=== PATIENT | female | born 1985 | race Caucasian/White ===

== ENCOUNTER 2020-05-15 11:58 | Emergency (ER) | payer OTHER ==
[2020-05-15] MEDS ORDERED: Ibuprofen 600 MG Tab PO ONE (13:13)
--- NOTE | 2020-05-15 13:58 | EDM.PDOC ---
ED HPI GENERAL MEDICAL PROBLEM - General Chief Complaint: General Stated Complaint: PANIC ATTACK Time Seen by Provider: 05/15/20 12:12 Source of Information: Reports: Patient History Limitations: Reports: No Limitations - History of Present Illness INITIAL COMMENTS - FREE TEXT/NARRATIVE: HISTORY AND PHYSICAL: History of present illness: Patient is a 34-year-old female who presents emergency room today with concern of a panic attack that occurred just prior to arrival to the ED. Patient states that her asked for divorce this morning. Patient states that she lives in [facility] and has 3 children. Patient states she is 3 months and states that she has some depression/ anxiety that she is supposed to be taking Zoloft for as prescribed by her [employer]LY[employer] provider out of [place]. Patient states that she got into an argument with her last night and he requested for divorce this morning. Patient states that he said some hurtful comments which she believes has been triggering her anxiety today. Patient states that she is in [employer] today as her middle child has a hockey game against [employer] today. Patient states that the hockey game is currently going on and while she was sitting in the bleachers, she began feeling super anxious and panicking. Patient states that in the triage process, she has felt improvement of her symptoms and states that she feels sad. Patient denies any homicidal ideation, suicidal ideation, or hallucinations. She states that she does not want to harm her baby or anybody. Patient states that she does have a safe place to go. Patient denies fever, chills, chest pain, shortness of breath, or cough. Denies headache, neck stiff ness, change in vision, syncope, or near syncope. Denies nausea, vomiting, abdominal pain, diarrhea, constipation, or dysuria. Has not noted any blood in urine or stool. Patient has been eating and drinking appropriately. Review of systems: As per history of present illness and below otherwise all systems reviewed and negative. Past medical history: As per history of present illness and as reviewed below otherwise noncontributory. Surgical history: As per history of present illness and as reviewed below otherwise noncontributory. Social history: See social history for further information Family history: As per history of present illness and as reviewed below otherwise noncontributory. Physical exam: General: Patient is alert, oriented, and in no acute distress. Patient sitting comfortably on exam table. Patient is tearful on exam and vitally stable reviewed by me. HEENT: Atraumatic, normocephalic, pupils equal and reactive bilaterally, negative for conjunctival pallor or scleral icterus, mucous membranes moist, TMs normal bilaterally, throat clear, neck supple, nontender, trachea midline. No drooling or trismus noted. No meningeal signs. No hot potato voice noted. Lungs: Clear to auscultation, breath sounds equal bilaterally, chest nontender. Heart: S1S2, regular rate and rhythm without overt murmur Abdomen: Soft, nondistended, nontender. Negative for masses or hepatosplenomegaly. Negative for costovertebral tenderness. Pelvis: Stable nontender. Genitourinary: Deferred. Rectal: Deferred. Skin: Intact, warm, dry. No lesions or rashes noted. Extremities: Atraumatic, negative for cords or calf pain. Neurovascular unremarkable. Neuro: Awake, alert, oriented. Cranial nerves II through XII unremarkable. Cerebellum unremarkable. Motor and sensory unremarkable throughout. Exam nonfocal. Notes: Patient was provided with information for the [facility] crisis [facility]. Patient also encouraged to call her ORGANISATION AND METHODS ANALYST provider that she states she has a close relationship with. Patient was asked numerous times by myself and nursing staff about suicidal, homicidal, or hallucinations and patient denies this. Signs and symptoms that were prompt return to the emergency room thoroughly discussed with patient. Discussed importance for follow-up with a primary care provider, or her [employer]ATION [employer] METHODS ANALYST provider. Voices understanding and is agreeable to plan of care. Denies any further questions or concerns at this time. Diagnostics: None Therapeutics: None Prescription: None Impression: Anxiety Depression Plan: 1. You can start your prescription for Zoloft as prescribed to you prior by her [employer] ANALYST provider. 2. I encourage you to call your [employer]NA[employer] provider for further discussion. 3. The [facility] information is above for you to call if you feel the need. 4. Follow-up with your primary care provider/[employer]ISATION [employer] METHODS ANALYST provider as discussed. Return to the ED as needed and as discussed. Definitive disposition and diagnosis as appropriate pending reevaluation and review of above. headache Pain Score (Numeric/FACES): 6 - Related Data Allergies Allergy/AdvReac Type Severity Reaction Status Date / Time Penicillins Allergy Mild Hives Verified 05/15/20 13:01 amoxicillin [Amoxicillin] Allergy Cannot Verified 05/15/20 13:01 Remember penicillin V Allergy Cannot Verified 05/15/20 13:01 Remember RYE AdvReac Vomiting Uncoded 05/15/20 13:01 Home Meds: Home Meds Fish Oil/[place]-3 Fatty Acids [Fish Oil 1,000 MG] 1 tab PO DAILY 11/02/19 [History] Pnv No.95/Ferrous Fum/Folic AC [ Multivitamin Tablet] 1 tab PO DAILY 11/02/19 [History] Past Medical History HEENT History: Reports: Impaired Vision Cardiovascular History: Reports: None Respiratory History: Reports: None Gastrointestinal History: Reports: GERD Genitourinary History: Reports: None ORGANISATION AND METHODS ANALYST History: Reports: Other ORGAN[employer]ATION AND METHODS ANALYST History: Lost lots of blood during one Musculoskeletal History: Reports: None Neurological History: Reports: Migraines, Vertigo Psychiatric History: Reports: Anxiety, Depression, PTSD Endocrine/Metabolic History: Reports: Obesity/BMI 30+ Hematologic History: Reports: Anemia, Other (See Below) Other Hematologic History: Anemia during Immunologic History: Reports: None Oncologic (Cancer) History: Reports: None Dermatologic History: Reports: None - Infectious Disease History Infectious Disease History: Reports: Chicken Pox, Helicobacter Pylori - Past Surgical History HEENT Surgical History: Reports: Adenoidectomy, Myringotomy w Tube(s), Oral Surgery, Tonsillectomy GI Surgical History: Reports: None Female Surgical History: Reports: Other (See Below) Other Female Surgeries/Procedures: colposcopy Neurological Surgical History: Reports: None Dermatological Surgical History: Reports: None Social & Family History - Family History HEENT: Reports: Macular Degeneration GI: Reports: Celiac Disease OBGYN: Reports: Dysfunctional uterine bleeding, Musculoskeletal: Reports: Osteoarthritis Psychiatric: Reports: Depression Endocrine/Metabolic: Reports: Hypothyroidism Oncologic: Reports: Breast - Tobacco Use Tobacco Use Status *Q: Never Tobacco User Second Hand Smoke Exposure: No - Caffeine Use Caffeine Use: Reports: None - Recreational Drug Use Recreational Drug Use: No - Living Situation & Occupation Living situation: Reports: , with Spouse Occupation: Employed ED ROS GENERAL - Review of Systems Review Of Systems: Comprehensive ROS is negative, except as noted in HPI. ED EXAM, GENERAL - Physical Exam Exam: See Below (See dictation) Course - Vital Signs Last Recorded V/S: Last Vital Signs Temp 97.2 F 05/15/20 12:36 Pulse 79 05/15/20 14:00 Resp 17 05/15/20 14:00 BP 121/81 05/15/20 14:00 Pulse Ox 99 05/15/20 14:00 - Orders/Labs/Meds Meds: Medications Discontinued Medications Generic Name Dose Route Start Last Admin Trade Name Mathieu PRN Reason Stop Dose Admin Ibuprofen 600 mg 05/15/20 13:13 05/15/20 13:16 Motrin PO 05/15/20 13:14 600 mg ONETIME ONE Administration Departure - Departure Time of Disposition: 13:55 Disposition: Home, Self-Care 01 Clinical Impression: Anxiety Depression Qualifiers: Depression Type: unspecified Qualified Code(s): F32.9 - Major depressive disorder, single episode, unspecified - Discharge Information Instructions: Panic Attack, [id number], Managing Anxiety, Adult Referrals: PCP,None [Primary Care Provider] - Forms: ED Department Discharge Additional Instructions: The following information is given to patients seen in the emergency department who are being discharged to home. This information is to outline your options for follow-up care. We provide all patients seen in our emergency department with a follow-up referral. The need for follow-up, as well as the timing and circumstances, are variable depending upon the specifics of your emergency department visit. If you don't have a primary care physician on staff, we will provide you with a referral. We always advise you to contact your personal physician following an emergency department visit to inform them of the circumstance of the visit and for follow-up with them and/or the need for any referrals to a consulting specialist. The emergency department will also refer you to a specialist when appropriate. This referral assures that you have the opportunity for follow-up care with a specialist. All of these measure are taken in an effort to provide you with optimal care, which includes your follow-up. Under all circumstances we always encourage you to contact your private physician who remains a resource for coordinating your care. When calling for follow-up care, please make the office aware that this follow-up is from your recent emergency room visit. If for any reason you are refused follow-up, please contact the [facility] Emergency Department at and asked to speak to the emergency department charge nurse. TIM [facility] [address] [place] [address] [facility] [address] [place] [address] [facility] [address] [place] [address] 1. You can start your prescription for Zoloft as prescribed to you prior by her ORGANISATION AND METHODS ANALYST provider. 2. I encourage you to call your [employer]NA[employer] provider for further discussion. 3. The [facility] information is above for you to call if you feel the need. 4. Follow-up with your primary care provider/[employer]ISATION AND METHODS ANALYST provider as discussed. Return to the ED as needed and as discussed. Sepsis Event Note (ED) - Evaluation Sepsis Screening Result: No Definite Risk - Focused Exam Vital Signs: Vital Signs Temp Pulse Resp BP Pulse Ox 05/15/20 14:00 79 17 121/81 99 05/15/20 12:36 97.2 F 87 18 121/62 99
[2020-05-15 14:11] VITALS: BP 121/81; PULSE 79
--- NOTE | 2020-05-16 06:10 | PCM.EKG ---
#1 Interpretation EKG Date: 05/15/20 Time: 13:29 Rhythm: NSR Rate (Beats/Min): 83 [place]: Normal P-Wave: Present QRS: Normal ST-T: Normal QT: Normal Comparison: No Change (11/18/15) EKG Interpretation Comments: SInus Rhythm with T wave inversion in III, aVF, V2-V5
== END 2020-05-15 14:12 | disposition home or self-care (01) ==
LOC: MW.ED 11:58
DX: F41.9 Anxiety disorder, unspecified (principal); F32.9 Major depressive disorder, single episode, unspecified; E66.9 Obesity, unspecified; Z88.0 Allergy status to penicillin; Z91.041 Radiographic dye allergy status
CPT/HCPCS: 93005; 99283; A9270